=== PATIENT | male | born 2005 | race Caucasian/White ===

== ENCOUNTER 2023-01-02 07:47 | Emergency (ER) | payer OTHER ==
[~2023-01-02] VITALS: Ht 177.8 cm; Wt 84.1 kg
[2023-01-02 11:15] VITALS: BP 131/67
== END 2023-01-02 11:19 | disposition home or self-care (01) ==
LOC: M ED 07:47
DX: S83.004A Unspecified dislocation of right patella, initial encounter (principal); X50.1XXA Overexertion from prolonged static or awkward postures, initial encounter; Y93.89 Activity, other specified; Y99.1 Military activity

== ENCOUNTER 2023-12-09 08:49 | Emergency (ER) | payer OTHER ==
[~2023-12-09] VITALS: Ht 177.8 cm; Wt 80.2 kg
[2023-12-09 08:50] VITALS: BP 124/60; TEMP 99.6; O2SAT 98
== END 2023-12-09 09:32 | disposition home or self-care (01) ==
LOC: M ED 08:49
DX: G56.22 Lesion of ulnar nerve, left upper limb (principal); F17.200 Nicotine dependence, unspecified, uncomplicated

== ENCOUNTER 2024-10-06 07:08 | Day surgery (SDC) | payer OTHER ==
[~2024-10-06] VITALS: Ht 177.8 cm; Wt 88.5 kg
[~2024-10-06 07:08] MED LIST: ALBU8.5H
[2024-10-06] MEDS ORDERED: MIDAZOLAM INJ 2MG/2ML VIAL As Ordered ONE (08:07)
[2024-10-06] MEDS ORDERED: fentaNYL 100 MCG/2 ML INJECTION As Ordered ONE (08:07)
[2024-10-06] MEDS ORDERED: LIDOCAINE 2% 100MG/5ML SDV (FOR ANES.) As Ordered ONE (08:07)
[2024-10-06] MEDS ORDERED: propofoL 200 MG/20 ML VIAL As Ordered ONE (08:07)
[2024-10-06] MEDS ORDERED: KETOROLAC 60MG 2ML VIAL As Ordered ONE (08:08)
[2024-10-06] MEDS ORDERED: ONDANSETRON 4MG 2ML VIAL As Ordered ONE (08:08)
[2024-10-06] MEDS ORDERED: LR 1,000 ML IV SCH (08:10)
[2024-10-06] MEDS ORDERED: ACETAMINOPHEN 1000MG/100ML IV BAG As Ordered ONE (09:22)
[2024-10-06] MEDS: ceFAZolin 2 GM/D5W 50 ML IV BAG As Ordered ONE (09:40)
[2024-10-06] MEDS: ceFAZolin SOD 2 GM in IV 1 EA IV ONE (09:58)
[2024-10-06] MEDS: BACITRACIN OINTMENT 30GM TUBE As Ordered ONE (10:11)
[2024-10-06] MEDS: LIDOCAINE W/EPINEPHRINE 1% 20ML VIAL As Ordered ONE (10:12)
[2024-10-06] MEDS ORDERED: fentaNYL 100 MCG/2 ML INJECTION IV PRN (10:30)
[2024-10-06] MEDS ORDERED: ONDANSETRON 4MG 2ML VIAL IV PRN (10:30)
[2024-10-06] MEDS: oxyCODONE 5MG TAB PO PRN (11:12)
[2024-10-06 11:20] VITALS: BP 128/61; TEMP 97.3; O2SAT 99
== END 2024-10-06 11:43 | disposition home or self-care (01) ==
LOC: M SDC 07:08
PROVIDERS: ATTEND Orthopaedic Surgery Hand Surgery
DX: G56.22 Lesion of ulnar nerve, left upper limb (principal)
CPT/HCPCS: 29999; J0131; J0690; J1100; J1885; J2250; J2405; J3010